=== PATIENT | male | born 1950 | race African-American/Black ===

== ENCOUNTER 2024-08-07 18:46 | Inpatient (IN) | payer MEDICARE, MEDICAID ==
[~2024-08-07] VITALS: Ht 167.6 cm; Wt 74.4 kg
[2024-08-07 21:01] LABS: BASOPHILS % 0.4 % (0.0-2.0); EOSINOPHILS % 1.9 % (0.0-5.0); HEMATOCRIT. 33.5 % (42.0-52.0); HEMOGLOBIN. 10.9 g/dL (14.0-18.0); LYMPHOCYTES % 28.3 % (20.0-50.0); MEAN CORPUSCULAR HEMOGLOBIN 31.7 pg (28.0-32.0); MEAN CORPUSCULAR HGB CONC 32.4 g/dL (31.0-37.0); MEAN CORPUSCULAR VOLUME 97.8 fL (80.0-94.0); MEAN PLATELET VOLUME 9.2 fl (7.4-10.4); MONOCYTES % 8.2 % (2.0-8.0); NEUTROPHILS % 61.2 % (40.0-76.0); PLATELET 113 x1000/uL (130-400); RED BLOOD CELL COUNT 3.43 mill/uL (4.7-6.1); RED CELL DISTRIBUTION WIDTH 15.4 % (11.6-14.6); WHITE BLOOD COUNT 7.1 x1000/uL (4.5-11.0)
[2024-08-07 21:05] LABS: CHLORIDE 108 mEq/L (98-107); POTASSIUM 4.8 mEq/L (3.5-5.1); SODIUM 140 mEq/L (136-145)
[2024-08-07 21:06] LABS: CARBON DIOXIDE 32 mEq/L (21-32)
[2024-08-07 21:07] LABS: CALCIUM 9.5 mg/dL (8.7-10.4)
[2024-08-07 21:11] LABS: CREATININE 1.7 mg/dL (0.6-1.3); GLUCOSE 89 mg/dL (70-105); INR 0.9; PARTIAL THROMBOPLASTIN TIME 25.3 sec (23.4-31.0); PROTHROMBIN TIME 10.4 sec (9.6-11.0)
[2024-08-07 21:12] LABS: UREA NITROGEN BLOOD 29 mg/dL (9-23)
[2024-08-07 21:14] LABS: TROPONIN I HIGH SENSITIVITY 5 ng/L (3.0-53)
[2024-08-07 21:36] LABS: CLARITY URINE CLEAR (CLEAR); COLOR URINE YELLOW (YELLOW); GLUCOSE URINE NEGATIVE (NEGATIVE); KETONES URINE NEGATIVE (NEGATIVE); LEUKOCYTE ESTERASE URINE 3+ (NEGATIVE); NITRITE URINE NEGATIVE (NEGATIVE); OCCULT BLOOD URINE NEGATIVE (NEGATIVE); PROTEIN URINE NEGATIVE (NEGATIVE); SPECIFIC GRAVITY URINE 1.013 (1.005-1.030); UROBILINOGEN URINE 0.2 E.U./dL (0.2-1.0)
[2024-08-07 22:09] LABS: BACTERIA URINE 1+; RBC URINE 0-2 /hpf (0-2); SQUAMOUS EPITHELIAL CELL URINE FEW /lpf (RARE/1+)
[2024-08-07 22:10] LABS: WBC URINE 50-100 /hpf (0-2)
[2024-08-07] MEDS ORDERED: ONDANSETRON HCL 4MG/2ML INJ IV PRN (22:15)
[2024-08-07] MEDS ORDERED: MAGNESIUM/ALUMINUM HYDROXIDE/SIMETHICONE 30ML UDC PO PRN (22:15)
[2024-08-07] MEDS ORDERED: GUAIFENESIN 200MG/10ML SUGAR FREE UDC PO PRN (22:15)
[2024-08-07] MEDS ORDERED: DOCUSATE SODIUM 100MG CAPSULE PO PRN (22:15)
[2024-08-07] MEDS ORDERED: CLONIDINE 0.1MG TABLET PO PRN (22:15)
[2024-08-07] MEDS ORDERED: CEFTRIAXONE 1GM/50ML 50 ML IV NR (22:15)
[2024-08-07] MEDS ORDERED: IPRATROPIUM/ALBUTEROL 0.5-3(2.5)MG/3ML NEB HHN PRN (22:15)
[2024-08-07] MEDS ORDERED: ACETAMINOPHEN 325MG TABLET PO PRN (22:15)
[2024-08-07] MEDS ORDERED: DEXTROSE 50% WATER 50ML SYRINGE IV PRN (22:45)
[2024-08-07] MEDS: SODIUM CHLORIDE 0.9% 1,000 ML IV ONE (22:57)
[2024-08-07] MEDS: ASPIRIN 81MG TABLET PO SCH (23:04)
[2024-08-07] MEDS: MULTIVITAMINS,THER W-MINERALS TABLET PO SCH (23:04)
[2024-08-07] MEDS: THIAMINE HCL 100MG TABLET PO SCH (23:04)
[2024-08-07] MEDS: FERROUS SULFATE 325MG TABLET PO SCH (23:11)
[2024-08-07] MEDS: CEFTRIAXONE 2GM/50ML 50 ML IV SCH (23:11)
[2024-08-08 00:14] LABS: IRON 70 ug/dL (65-175)
[2024-08-08 00:16] LABS: TOTAL IRON BINDING CAPACITY 226 ug/dl (250-425); VALPROIC ACID 18.7 ug/mL (50-100)
[2024-08-08 00:17] LABS: PHENYTOIN < 2.0 ug/mL (10-20); TROPONIN I HIGH SENSITIVITY 7 ng/L (3.0-53)
[2024-08-08 00:20] LABS: FERRITIN 75 ng/mL (22-322); FOLIC ACID (FOLATE) SERUM 11.97 ng/mL (>5.38)
[2024-08-08 04:00] VITALS: BP 98/52; PULSE 67; RESP 18; TEMP 36.78072; O2SAT 99
[2024-08-08 05:23] LABS: VITAMIN B12 SERUM 508 pg/mL (211-911)
[2024-08-08] MEDS: PHENYTOIN SODIUM EXTENDED 100MG CAPSULE PO SCH (06:49)
[2024-08-08] MEDS: DEXT 5%/LACTATED RINGERS 1,000 ML IV ONE (06:50)
[2024-08-08 07:07] LABS: BASOPHILS % 0.3 % (0.0-2.0); EOSINOPHILS % 1.9 % (0.0-5.0); HEMATOCRIT. 32.3 % (42.0-52.0); HEMOGLOBIN. 10.6 g/dL (14.0-18.0); LYMPHOCYTES % 32.4 % (20.0-50.0); MEAN CORPUSCULAR HEMOGLOBIN 31.7 pg (28.0-32.0); MEAN CORPUSCULAR HGB CONC 32.9 g/dL (31.0-37.0); MEAN CORPUSCULAR VOLUME 96.4 fL (80.0-94.0); MEAN PLATELET VOLUME 9.6 fl (7.4-10.4); MONOCYTES % 9.1 % (2.0-8.0); NEUTROPHILS % 56.3 % (40.0-76.0); PLATELET 122 x1000/uL (130-400); RED BLOOD CELL COUNT 3.35 mill/uL (4.7-6.1); WHITE BLOOD COUNT 6.9 x1000/uL (4.5-11.0)
[2024-08-08 07:09] LABS: CHLORIDE 111 mEq/L (98-107); POTASSIUM 4.3 mEq/L (3.5-5.1); SODIUM 143 mEq/L (136-145)
[2024-08-08 07:11] LABS: CALCIUM 9.4 mg/dL (8.7-10.4); CARBON DIOXIDE 28 mEq/L (21-32)
[2024-08-08] MEDS: BLOOD SUGAR DIAGNOSTIC STRIP TEST SCH (07:11)
[2024-08-08] MEDS: INSULIN LISPRO 100 UNITS/ML SUBCUT SCH (07:12)
[2024-08-08 07:16] LABS: CREATININE 1.4 mg/dL (0.6-1.3); GLUCOSE 102 mg/dL (70-105); TRIGLYCERIDE 52 mg/dL (0-150); UREA NITROGEN BLOOD 24 mg/dL (9-23)
[2024-08-08 07:17] LABS: ALANINE AMINOTRANSFERASE 8 IU/L (10-49); LDL CHOLESTEROL 42 mg/dL (5-100); PROTEIN TOTAL 6.3 g/dL (6.0-8.3)
[2024-08-08 07:18] LABS: ALBUMIN 3.7 g/dL (3.2-4.8); ASPARTATE AMINOTRANSFERASE 21 IU/L (<34); BILIRUBIN DIRECT 0.1 mg/dL (<=3.0); BILIRUBIN TOTAL 0.3 mg/dL (0.1-1.0); CHOLESTEROL 101 mg/dL (<200); HDL CHOLESTEROL 44 mg/dL (>55); PHOSPHORUS 2.7 mg/dL (2.5-4.9)
[2024-08-08 07:20] LABS: T4 FREE 0.86 ng/dL (0.89-1.76); THYROID STIMULATING HORMONE 0.56 uIU/mL (0.55-4.78)
[2024-08-08] MEDS: QUETIAPINE FUMARATE 50MG TABLET PO SCH (09:00)
[2024-08-08] MEDS: FOLIC ACID 1MG TABLET PO SCH (09:00)
[2024-08-08 16:51] LABS: CREATINE KINASE MB FRACTION 9.6 ng/mL (0.5-3.6)
[2024-08-08] MEDS: ACETAMINOPHEN 325MG TABLET PO PRN (16:53)
[2024-08-08 16:56] VITALS: BP 115/52; PULSE 68; RESP 18; TEMP 36.50292; O2SAT 100
[2024-08-08 17:04] VITALS: BP 115/52; PULSE 68; RESP 18; TEMP 36.5292
[2024-08-08] MEDS ORDERED: HYDROCODONE/ACETAMINOPHEN 5/325MG TABLET PO PRN (18:15)
[2024-08-08] MEDS ORDERED: NALOXONE HCL 0.4MG/ML VIAL IV PRN (18:30)
[2024-08-08 18:52] LABS: HEPATITIS B SURFACE ANTIGEN NEGATIVE (Negative)
[2024-08-08 19:13] LABS: HEPATITIS C AB NON REACTIVE (Neg) (Negative)
[2024-08-08 19:32] LABS: *AMPHETAMINES SCREEN URINE NEGATIVE (NEGATIVE); *BARBITURATES SCREEN URINE NEGATIVE (NEGATIVE); *BENZODIAZEPINES SCREEN URINE NEGATIVE (NEGATIVE); *COCAINE SCREEN URINE NEGATIVE (NEGATIVE); METHADONE URINE SCREEN NEGATIVE (NEGATIVE); OPIATES URINE SCREEN NEGATIVE (NEGATIVE)
[2024-08-08 19:33] LABS: CANNABINOID URINE SCREEN NEGATIVE (NEGATIVE); ECSTASY MDMA SCREEN URINE NEGATIVE (NEGATIVE); PHENCYCLIDINE URINE SCREEN NEGATIVE (NEGATIVE)
[2024-08-08 20:00] VITALS: BP_SYST 100; BP_SYST 132; BP_DIAS 52; BP_DIAS 67; PULSE 62; RESP 20; RESP 22; TEMP 36.114; TEMP 36.50292; O2SAT 100
[2024-08-08] MEDS: FAMOTIDINE 20MG TABLET PO SCH (21:56)
[2024-08-08] MEDS: ATORVASTATIN CALCIUM 40MG TABLET PO SCH (21:56)
[2024-08-08] MEDS: CEFTRIAXONE 2GM/50ML 50 ML IV SCH (22:52)
[2024-08-08] MEDS: SODIUM CHLORIDE 0.9% 1,000 ML IV SCH (22:53)
[2024-08-09 04:00] VITALS: BP 122/69; PULSE 62; RESP 20; TEMP 36.44736; O2SAT 98
[2024-08-09] MEDS: PIPERACILLIN/TAZO 3.375G/50ML 50 ML IV SCH (05:34)
[2024-08-09 07:04] LABS: CARBON DIOXIDE 26 mEq/L (21-32); CHLORIDE 110 mEq/L (98-107); POTASSIUM 4.4 mEq/L (3.5-5.1); SODIUM 141 mEq/L (136-145)
[2024-08-09 07:05] LABS: CALCIUM 9.3 mg/dL (8.7-10.4)
[2024-08-09 07:10] LABS: CREATININE 1.4 mg/dL (0.6-1.3); GLUCOSE 83 mg/dL (70-105); UREA NITROGEN BLOOD 21 mg/dL (9-23)
[2024-08-09 07:42] LABS: HEMATOCRIT 33.5 % (42.0-52.0); MEAN CORPUSCULAR HEMOGLOBIN 31.8 pg (28.0-32.0); MEAN CORPUSCULAR HGB CONC 32.7 g/dL (31.0-37.0); MEAN CORPUSCULAR VOLUME 97.2 fL (80.0-94.0); PLATELET 115 x1000/uL (130-400); RED BLOOD CELL COUNT 3.45 mill/uL (4.7-6.1); RED CELL DISTRIBUTION WIDTH 15.2 % (11.6-14.6); WHITE BLOOD COUNT 6.9 x1000/uL (4.5-11.0)
[2024-08-09 08:00] VITALS: BP 117/70; PULSE 70; RESP 18; TEMP 36.61404; O2SAT 99
[2024-08-09 12:00] VITALS: BP 112/70; PULSE 67; RESP 18; TEMP 36.61404; O2SAT 98
[2024-08-09 16:00] VITALS: BP 104/54; PULSE 66; RESP 18; TEMP 36.50292; O2SAT 97
[2024-08-09 20:00] VITALS: BP 131/54; PULSE 80; RESP 19; TEMP 36.114; O2SAT 100
[2024-08-10] VITALS: BP 110/68; PULSE 82; RESP 19; TEMP 36.72516; O2SAT 96
[2024-08-10 04:00] VITALS: BP 107/61; PULSE 69; RESP 18; TEMP 36.28068
[2024-08-10 06:29] LABS: CARBON DIOXIDE 25 mEq/L (21-32); CHLORIDE 113 mEq/L (98-107); POTASSIUM 4.6 mEq/L (3.5-5.1); SODIUM 141 mEq/L (136-145)
[2024-08-10 06:32] LABS: CREATININE 1.5 mg/dL (0.6-1.3)
[2024-08-10 06:34] LABS: GLUCOSE 98 mg/dL (70-105)
[2024-08-10 06:35] LABS: UREA NITROGEN BLOOD 18 mg/dL (9-23)
[2024-08-10 06:36] LABS: PHOSPHORUS 2.7 mg/dL (2.5-4.9)
[2024-08-10 06:46] LABS: HEMATOCRIT 33.3 % (42.0-52.0); HEMOGLOBIN 10.9 g/dL (14.0-18.0); MEAN CORPUSCULAR HEMOGLOBIN 31.8 pg (28.0-32.0); MEAN CORPUSCULAR HGB CONC 32.9 g/dL (31.0-37.0); MEAN CORPUSCULAR VOLUME 96.7 fL (80.0-94.0); PLATELET 122 x1000/uL (130-400); RED BLOOD CELL COUNT 3.44 mill/uL (4.7-6.1); RED CELL DISTRIBUTION WIDTH 14.9 % (11.6-14.6); WHITE BLOOD COUNT 8.2 x1000/uL (4.5-11.0)
[2024-08-10 08:00] VITALS: BP 109/70; PULSE 61; RESP 17; TEMP 36.61404; O2SAT 99
[2024-08-10 12:00] VITALS: BP 109/70; PULSE 64; RESP 18; TEMP 35.89176; O2SAT 100
[2024-08-10 16:00] VITALS: BP 112/74; PULSE 60; RESP 18; TEMP 36.61404; O2SAT 100
[2024-08-10 20:00] VITALS: BP 138/76; PULSE 76; RESP 19; TEMP 36.33624; O2SAT 98
[2024-08-10] MEDS: MELATONIN 3MG TABLET PO NR (21:20)
[2024-08-11] VITALS: BP 127/66; PULSE 64; RESP 19; TEMP 36.00288; O2SAT 98
[2024-08-11 04:00] VITALS: BP 138/71; PULSE 59; RESP 20; TEMP 36.114; O2SAT 95
[2024-08-11 08:00] VITALS: BP 144/79; PULSE 61; RESP 18; TEMP 36.72516; O2SAT 100
[2024-08-11 12:00] VITALS: BP 130/72; PULSE 65; RESP 20; TEMP 36.6696; O2SAT 98
[2024-08-11 12:14] LABS: HEMATOCRIT 36.4 % (42.0-52.0); HEMOGLOBIN 11.6 g/dL (14.0-18.0); MEAN CORPUSCULAR HEMOGLOBIN 31.4 pg (28.0-32.0); MEAN CORPUSCULAR HGB CONC 31.9 g/dL (31.0-37.0); MEAN CORPUSCULAR VOLUME 98.5 fL (80.0-94.0); PLATELET 120 x1000/uL (130-400); RED BLOOD CELL COUNT 3.69 mill/uL (4.7-6.1); RED CELL DISTRIBUTION WIDTH 15.1 % (11.6-14.6); WHITE BLOOD COUNT 8.5 x1000/uL (4.5-11.0)
[2024-08-11 12:17] LABS: CHLORIDE 109 mEq/L (98-107); POTASSIUM 4.7 mEq/L (3.5-5.1); SODIUM 139 mEq/L (136-145)
[2024-08-11 12:18] LABS: CARBON DIOXIDE 27 mEq/L (21-32)
[2024-08-11 12:19] LABS: CALCIUM 9.7 mg/dL (8.7-10.4)
[2024-08-11 12:23] LABS: CREATININE 1.4 mg/dL (0.6-1.3); GLUCOSE 116 mg/dL (70-105)
[2024-08-11 12:24] LABS: UREA NITROGEN BLOOD 10 mg/dL (9-23)
[2024-08-11 12:26] LABS: PHOSPHORUS 2.5 mg/dL (2.5-4.9)
[2024-08-11] MEDS: CEFTRIAXONE 1GM/50ML 50 ML IV SCH (15:51)
[2024-08-11 16:00] VITALS: BP 118/76; PULSE 63; RESP 18; TEMP 36.61404; O2SAT 100
[2024-08-11 20:00] VITALS: BP 141/69; PULSE 58; RESP 18; TEMP 36.28068; O2SAT 97
[2024-08-12] VITALS: BP 115/55; PULSE 61; RESP 18; TEMP 35.8362; O2SAT 96
[2024-08-12 04:00] VITALS: BP 119/66; PULSE 65; RESP 18; TEMP 36.44736; O2SAT 97
[2024-08-12 07:45] VITALS: BP 144/70; PULSE 61; RESP 20; TEMP 36.6696; O2SAT 98
[2024-08-12 16:00] VITALS: BP 143/90; PULSE 64; RESP 18; TEMP 36.72516; O2SAT 100
[2024-08-12 20:00] VITALS: BP 147/83; PULSE 64; RESP 19; TEMP 35.8362; O2SAT 98
[2024-08-13] VITALS: BP 134/75; PULSE 67; RESP 18; TEMP 36.28068; O2SAT 99
[2024-08-13 04:00] VITALS: BP 112/62; PULSE 69; RESP 18; TEMP 36.22512; O2SAT 99
[2024-08-13 07:11] LABS: HEMATOCRIT 35.6 % (42.0-52.0); HEMOGLOBIN 11.7 g/dL (14.0-18.0); MEAN CORPUSCULAR HEMOGLOBIN 32.3 pg (28.0-32.0); MEAN CORPUSCULAR HGB CONC 32.8 g/dL (31.0-37.0); MEAN CORPUSCULAR VOLUME 98.3 fL (80.0-94.0); PLATELET 128 x1000/uL (130-400); RED BLOOD CELL COUNT 3.63 mill/uL (4.7-6.1); RED CELL DISTRIBUTION WIDTH 14.9 % (11.6-14.6); WHITE BLOOD COUNT 9.5 x1000/uL (4.5-11.0)
[2024-08-13 07:24] LABS: CHLORIDE 114 mEq/L (98-107); POTASSIUM 4.6 mEq/L (3.5-5.1); SODIUM 143 mEq/L (136-145)
[2024-08-13 07:25] LABS: CALCIUM 9.4 mg/dL (8.7-10.4); CARBON DIOXIDE 26 mEq/L (21-32)
[2024-08-13 07:30] LABS: CREATININE 1.3 mg/dL (0.6-1.3); GLUCOSE 87 mg/dL (70-105); UREA NITROGEN BLOOD 13 mg/dL (9-23)
[2024-08-13 07:32] LABS: PHOSPHORUS 3.5 mg/dL (2.5-4.9)
[2024-08-13 08:00] VITALS: BP 122/64; PULSE 64; RESP 17; TEMP 36.44736; O2SAT 98
[2024-08-13 16:00] VITALS: BP 147/73; PULSE 67; RESP 20; TEMP 36.33624; O2SAT 99
[2024-08-13 20:00] VITALS: BP 137/60; PULSE 69; RESP 19; TEMP 36.16956; O2SAT 99
[2024-08-14] VITALS: BP 110/54; PULSE 75; RESP 19; TEMP 35.66952; O2SAT 99
[2024-08-14 04:00] VITALS: BP 117/56; PULSE 61; RESP 20; TEMP 36.16956; O2SAT 99
[2024-08-14 08:00] VITALS: BP 132/94; PULSE 70; RESP 18; TEMP 36.72516; O2SAT 98
[2024-08-14 12:00] VITALS: BP 136/58; PULSE 60; RESP 18; TEMP 36.61404; O2SAT 98
[2024-08-14 16:00] VITALS: BP 128/78; PULSE 69; RESP 18; TEMP 36.16956; O2SAT 98
[2024-08-14 20:00] VITALS: BP 142/64; PULSE 67; RESP 20; TEMP 37.28076; O2SAT 100
[2024-08-15] VITALS: BP 130/56; PULSE 68; RESP 20; TEMP 37.00296; O2SAT 100
[2024-08-15 04:00] VITALS: BP 133/65; PULSE 68; RESP 20; TEMP 36.72516; O2SAT 100
[2024-08-15 06:39] LABS: CARBON DIOXIDE 22 mEq/L (21-32); CHLORIDE 111 mEq/L (98-107); SODIUM 141 mEq/L (136-145)
[2024-08-15 06:40] LABS: CALCIUM 8.8 mg/dL (8.7-10.4)
[2024-08-15 06:44] LABS: CREATININE 1.1 mg/dL (0.6-1.3)
[2024-08-15 06:45] LABS: GLUCOSE 98 mg/dL (70-105); UREA NITROGEN BLOOD 14 mg/dL (9-23)
[2024-08-15 07:16] LABS: HEMOGLOBIN 11.3 g/dL (14.0-18.0); MEAN CORPUSCULAR HEMOGLOBIN 32.6 pg (28.0-32.0); MEAN CORPUSCULAR HGB CONC 33.4 g/dL (31.0-37.0); MEAN CORPUSCULAR VOLUME 97.6 fL (80.0-94.0); PLATELET 139 x1000/uL (130-400); RED BLOOD CELL COUNT 3.48 mill/uL (4.7-6.1); RED CELL DISTRIBUTION WIDTH 15.1 % (11.6-14.6); WHITE BLOOD COUNT 9.8 x1000/uL (4.5-11.0)
[2024-08-15 08:00] VITALS: BP 127/69; PULSE 61; RESP 20; TEMP 36.61404; O2SAT 98
[2024-08-15 12:00] VITALS: BP 125/67; PULSE 72; RESP 18; TEMP 36.89184; O2SAT 97
[2024-08-15 16:00] VITALS: BP 126/70; PULSE 64; RESP 20; TEMP 36.44736; O2SAT 100
[2024-08-15 20:00] VITALS: BP 117/49; PULSE 79; RESP 18; TEMP 36.55848; O2SAT 100
[2024-08-16] VITALS: BP 130/39; PULSE 77; RESP 18; TEMP 36.89184; O2SAT 100
[2024-08-16 04:00] VITALS: BP 135/70; PULSE 80; RESP 18; TEMP 36.50292; O2SAT 100
[2024-08-16 08:00] VITALS: BP 125/49; PULSE 70; RESP 20; TEMP 36.61404; O2SAT 95
[2024-08-16 12:00] VITALS: BP 146/74; PULSE 81; RESP 20; TEMP 36.50292; O2SAT 100
[2024-08-16 16:54] VITALS: BP 136/49; PULSE 63; TEMP 97.4; O2SAT 100
[2024-08-16] MEDS ORDERED: TRAZODONE HCL 50MG TABLET PO SCH (21:00)
== END 2024-08-16 17:40 | DRG 347 ==
LOC: ER 18:46 → EDBEDREQ 19:05 → 5WST 22:09 → EDBEDREQTM 22:30 → EDBEDREQ 22:30 → 5WST 08-08 11:35 → 8WST 08-08 16:31
PROVIDERS: ADMIT Internal Medicine; ATTEND Internal Medicine
DX: M48.061 Spinal stenosis, lumbar region without neurogenic claudication (principal); N17.0 Acute kidney failure with tubular necrosis; D69.6 Thrombocytopenia, unspecified; M62.82 Rhabdomyolysis; I12.9 Hypertensive chronic kidney disease with stage 1 through stage 4 chronic kidney disease, or unspecified chronic kidney disease; D64.9 Anemia, unspecified; E03.9 Hypothyroidism, unspecified; E78.5 Hyperlipidemia, unspecified; F31.9 Bipolar disorder, unspecified; J44.9 Chronic obstructive pulmonary disease, unspecified; F20.9 Schizophrenia, unspecified; N39.0 Urinary tract infection, site not specified; N40.0 Benign prostatic hyperplasia without lower urinary tract symptoms; N18.9 Chronic kidney disease, unspecified; I45.10 Unspecified right bundle-branch block; M48.02 Spinal stenosis, cervical region; Z91.199 Patient's noncompliance with other medical treatment and regimen due to unspecified reason; G89.4 Chronic pain syndrome; F17.210 Nicotine dependence, cigarettes, uncomplicated; G40.909 Epilepsy, unspecified, not intractable, without status epilepticus; Z88.8 Allergy status to other drugs, medicaments and biological substances; Z79.82 Long term (current) use of aspirin; Z79.899 Other long term (current) drug therapy; Z79.84 Long term (current) use of oral hypoglycemic drugs; Z87.820 Personal history of traumatic brain injury; Z82.49 Family history of ischemic heart disease and other diseases of the circulatory system
CPT/HCPCS: 36415; 71045; 72141; 72146; 72148; 80048; 80061; 80076; 80165; 80185; 80305; 81003; 82542; 82550; 82553; 82607; 82728; 82746; 82962; 83036; 83540; 83550; 83735; 83880; 84100; 84145; 84439; 84443; 84484; 85025; 85027; 86705; 87077; 87186; 87340; 92523; 93005; 93970; 97162; 97166; 99285; J0696; J1815; J2543; J7030

== ENCOUNTER 2025-03-15 20:45 | Emergency (ER) | payer MEDICARE, MEDICAID ==
[~2025-03-15] VITALS: Ht 170.2 cm; Wt 73.0 kg
[~2025-03-15 20:45] MED LIST: ASPI-1406 PO; ATOR20TA65 PO; FERR325T30 PO; NALT50TA5 PO; QUET100T34 PO; QUET200T4 PO; QUET400T12 MT; VITA-384 PO; [UNRECOGNIZED DRUG - OTHER]
[2025-03-15 21:01] VITALS: O2SAT 100
[2025-03-15 22:03] LABS: CLARITY URINE CLEAR (CLEAR); COLOR URINE YELLOW (YELLOW); GLUCOSE URINE NEGATIVE (NEGATIVE); KETONES URINE NEGATIVE (NEGATIVE); LEUKOCYTE ESTERASE URINE NEGATIVE (NEGATIVE); NITRITE URINE NEGATIVE (NEGATIVE); OCCULT BLOOD URINE NEGATIVE (NEGATIVE); PROTEIN URINE NEGATIVE (NEGATIVE); SPECIFIC GRAVITY URINE 1.015 (1.005-1.030); UROBILINOGEN URINE 0.2 E.U./dL (0.2-1.0)
[2025-03-15 22:11] LABS: *AMPHETAMINES SCREEN URINE NEGATIVE (NEGATIVE); *BARBITURATES SCREEN URINE NEGATIVE (NEGATIVE); *BENZODIAZEPINES SCREEN URINE NEGATIVE (NEGATIVE); *COCAINE SCREEN URINE NEGATIVE (NEGATIVE); CANNABINOID URINE SCREEN PRESUMPTIVE POSITIVE (NEGATIVE); ECSTASY MDMA SCREEN URINE NEGATIVE (NEGATIVE); METHADONE URINE SCREEN NEGATIVE (NEGATIVE); OPIATES URINE SCREEN NEGATIVE (NEGATIVE); PHENCYCLIDINE URINE SCREEN NEGATIVE (NEGATIVE)
[2025-03-15 23:13] LABS: EOSINOPHILS % 2.4 % (0.0-5.0); HEMOGLOBIN. 11.6 g/dL (14.0-18.0); LYMPHOCYTES % 22.8 % (20.0-50.0); MEAN CORPUSCULAR HEMOGLOBIN 31.1 pg (28.0-32.0); MEAN CORPUSCULAR HGB CONC 33.2 g/dL (31.0-37.0); MEAN CORPUSCULAR VOLUME 93.6 fL (80.0-94.0); MEAN PLATELET VOLUME 8.2 fl (7.4-10.4); MONOCYTES % 10.1 % (2.0-8.0); NEUTROPHILS % 63.7 % (40.0-76.0); PLATELET 128 x1000/uL (130-400); RED BLOOD CELL COUNT 3.74 mill/uL (4.7-6.1); RED CELL DISTRIBUTION WIDTH 15.3 % (11.6-14.6); WHITE BLOOD COUNT 5.4 x1000/uL (4.5-11.0)
[2025-03-15 23:24] LABS: CHLORIDE 109 mEq/L (98-107); POTASSIUM 4.8 mEq/L (3.5-5.1); SODIUM 141 mEq/L (136-145)
[2025-03-15 23:25] LABS: CALCIUM 9.3 mg/dL (8.7-10.4); CARBON DIOXIDE 28 mEq/L (21-32)
[2025-03-15 23:30] LABS: CREATININE 1.3 mg/dL (0.6-1.3); GLUCOSE 92 mg/dL (70-105); UREA NITROGEN BLOOD 15 mg/dL (9-23)
[2025-03-15 23:31] LABS: ETHANOL BLOOD < 10 mg/dL (<10)
[2025-03-15 23:32] LABS: ACETAMINOPHEN < 2 ug/mL (10-30)
[2025-03-16] MEDS: QUETIAPINE FUMARATE 50MG TABLET PO SCH (21:00)
[2025-03-19 13:50] VITALS: BP 117/60; PULSE 75; RESP 16; TEMP 36.7; O2SAT 99
== END 2025-03-19 15:50 | disposition home or self-care (01) ==
LOC: ER 20:45
DX: R45.851 Suicidal ideations (principal); F20.9 Schizophrenia, unspecified; F31.9 Bipolar disorder, unspecified; F12.90 Cannabis use, unspecified, uncomplicated; R56.9 Unspecified convulsions; J44.9 Chronic obstructive pulmonary disease, unspecified; Z79.899 Other long term (current) drug therapy; Z20.822 Contact with and (suspected) exposure to COVID-19
CPT/HCPCS: 36415; 80048; 80305; 80307; 80320; 80329; 81003; 85025; 87426; 99285; G0480